=== PATIENT | female | born 1935 | race Asian ===

== ENCOUNTER → 2016-12-15 | Outpatient (CLI) | payer OTHER | END | disposition home or self-care (01) | LOC: RADMN 09:20 | PROVIDERS: ATTEND Internal Medicine Pulmonary Disease | DX: S33.8XXA Sprain of other parts of lumbar spine and pelvis, initial encounter (principal); M12.88 Other specific arthropathies, not elsewhere classified, other specified site; M43.8X5 Other specified deforming dorsopathies, thoracolumbar region; M43.16 Spondylolisthesis, lumbar region; M48.06 Spinal stenosis, lumbar region; X58.XXXA Exposure to other specified factors, initial encounter; Y93.89 Activity, other specified; Y92.89 Other specified places as the place of occurrence of the external cause; Y99.8 Other external cause status | CPT/HCPCS: 72148; 72195 ==

== ENCOUNTER → 2017-01-31 | Outpatient (CLI) | payer OTHER | END | disposition home or self-care (01) | LOC: RADPV 10:19 | PROVIDERS: ATTEND Internal Medicine | DX: M17.0 Bilateral primary osteoarthritis of knee (principal); I70.0 Atherosclerosis of aorta; M41.80 Other forms of scoliosis, site unspecified; Z91.81 History of falling | CPT/HCPCS: 71020; 71100 ==

== ENCOUNTER 2018-06-17 09:18 | Emergency (ER) | payer OTHER ==
[~2018-06-17] VITALS: Ht 152.4 cm; Wt 68.2 kg
[2018-06-17] MEDS ORDERED: GABA-531 PO (09:40)
[2018-06-17] MEDS ORDERED: ASPI-556 PO (09:40)
[2018-06-17] MEDS ORDERED: METF-960 PO (09:40)
[2018-06-17] MEDS ORDERED: LINA5TAB PO (09:40)
[2018-06-17] MEDS ORDERED: TERA2CAP10 PO (09:40)
[2018-06-17] MEDS ORDERED: OMEP20 PO (09:40)
[2018-06-17] MEDS ORDERED: PRED20 PO (09:40)
[2018-06-17] MEDS ORDERED: AZIT250T9 PO (09:40)
[2018-06-17] MEDS ORDERED: SODIUM CHLORIDE 0.9% 1,000 ML IV ONE (10:30)
[2018-06-17 10:32] LABS: BASOPHILS % (AUTO) 0.1 % (0.0-2.0); EOSINOPHILS % (AUTO) 0.1 % (1.0-6.0); HEMATOCRIT 37.4 % (36-46); HEMOGLOBIN 12.4 g/dL (12.0-16.0); LYMPHOCYTES # (AUTO) 0.5 K/uL (1.0-4.8); LYMPHOCYTES % (AUTO) 4.6 % (22.0-44.0); MEAN CORPUSCULAR HEMOGLOBIN 30.2 pg (26.0-34.0); MEAN CORPUSCULAR HGB CONC 33.2 G/dL (31.0-37.0); MEAN CORPUSCULAR VOLUME 91 fL (80-100); MONOCYTES # (AUTO) 0.2 K/uL (0.1-1.0); MONOCYTES % (AUTO) 2.2 % (2.0-9.0); NEUTROPHILS # (AUTO) 9.7 K/uL (1.8-7.7); PLATELET COUNT (AUTO) 181 K/uL (150-450); RED BLOOD CELL COUNT(AUTO) 4.11 MIL/uL (4.00-5.20)
[2018-06-17 10:44] LABS: INFLUENZA TYPE A NEGATIVE FOR TYPE A (NEGATIVE); INFLUENZA TYPE B NEGATIVE FOR TYPE B (NEGATIVE)
[2018-06-17 10:50] LABS: LACTIC ACID 1.6 mmol/L (0.4-2.0)
[2018-06-17 10:56] LABS: CALCIUM, TOTAL 8.6 mg/dL (8.8-10.5); CREATININE 1.01 mg/dL (0.60-1.30); POTASSIUM 4.4 mmol/L (3.5-5.1)
[2018-06-17 11:00] LABS: ALBUMIN 3.4 g/dL (3.4-5.0); BILIRUBIN,TOTAL 0.4 mg/dL (0.1-1.0); TOTAL PROTEIN, SERUM 6.9 g/dL (6.4-8.2)
[2018-06-17] MEDS ORDERED: ACETAMINOPHEN 325 MG TABLET PO ONE (13:15)
[2018-06-17] MEDS ORDERED: MECLIZINE HCL 25 MG TABLET PO ONE (14:45)
[2018-06-17 16:52] VITALS: BP 140/65
== END 2018-06-17 17:08 | disposition other institution (70) ==
LOC: EDUNIT# 09:18 → EMS 09:20
DX: E86.0 Dehydration (principal); J18.9 Pneumonia, unspecified organism; R51 Headache; J45.909 Unspecified asthma, uncomplicated; E11.9 Type 2 diabetes mellitus without complications; Z79.82 Long term (current) use of aspirin; Z79.84 Long term (current) use of oral hypoglycemic drugs
CPT/HCPCS: 36415; 71045; 80053; 82962; 83605; 83880; 84484; 85025; 87040; 87804; 93005; 96360; 99284; J7030